=== PATIENT | female | born 1970 ===

== ENCOUNTER 2017-04-05 18:43 | Emergency (ER) | payer BC ==
[2017-04-05 18:57] VITALS: BP 157/96; PULSE 86; RESP 18; TEMP 98.7; O2SAT 100
[2017-04-05] MEDS ORDERED: Morphine 4 MG/ML VIAL IVP STA (20:03)
[2017-04-05] MEDS ORDERED: Iohexol 240 (50 ml) PO ONE (20:03)
[2017-04-05] MEDS ORDERED: Sodium Chloride 0.9% 1,000 ML IV STA (20:04)
[2017-04-05] MEDS ORDERED: Iohexol 240 (50 ml) ONE (20:20)
[2017-04-05] MEDS ORDERED: Morphine 4 MG/ML VIAL ONE (20:20)
[2017-04-05 20:38] LABS: BASO % 0.3 % (0.0-2.0); EOS # 0.1 K/uL (0.0-0.7); EOS % 0.6 % (0.0-4.0); HEMOGLOBIN 13.6 g/dL (12.0-16.0); LYMPH # 1.4 K/uL (1.0-4.3); LYMPH % 11.6 % (20.0-40.0); MEAN CORPUSCULAR HEMOGLOBIN 29.8 pg (27.0-31.0); MEAN CORPUSCULAR HGB CONC 33.5 g/dL (33.0-37.0); MEAN PLATELET VOLUME 7.7 fl (7.2-11.7); MONO # 0.6 K/uL (0.0-0.8); MONO % 4.5 % (0.0-10.0); NEUT # 10.4 K/uL (1.8-7.0); RBC 4.55 Mil/uL (3.80-5.20); RED CELL DISTRIBUTION WIDTH 13.2 % (11.5-14.5); SQUAMOUS EPITHIAL 8 /hpf (0-5); URINE BACTERIA OCC (<OCC); URINE BILIRUBIN NEGATIVE (NEGATIVE); URINE BLOOD MODERATE (NEGATIVE); URINE CLARITY CLOUDY (Clear); URINE COLOR YELLOW (YELLOW); URINE GLUCOSE (UA) NEG (Normal); URINE LEUKOCYTE ESTERASE MOD Leu/uL (Negative); URINE NITRATE NEGATIVE (NEGATIVE); URINE PROTEIN 30 mg/dL (NEGATIVE); URINE UROBILINOGEN 0.2-1.0 mg/dL (0.2-1.0); WHITE BLOOD COUNT 12.5 K/uL (4.8-10.8)
[2017-04-05 20:47] LABS: ALB/GLOB RATIO 1.3 (1.0-2.1); ALBUMIN 4.4 g/dL (3.5-5.0); ALT/SGPT 29 U/L (9-52); AST/SGOT 22 U/L (14-36); BLOOD UREA NITROGEN 9 mg/dl (7-17); CALCIUM 8.9 mg/dL (8.4-10.2); GFR AFRICAN-AMERICAN > 60; GFR NON-AFRICAN AMERICAN > 60; LIPASE 64 U/L (23-300)
[2017-04-05] MEDS ORDERED: Sodium Chloride 0.9% 50 ML IV ONE (20:56)
[2017-04-05] MEDS ORDERED: Iohexol 300 100 ML IJ ONE (20:56)
--- NOTE | 2017-04-05 21:21 | ED PDOC ---
HPI: Abdomen Time Seen by Provider: 04/05/17 19:50 Chief Complaint (Nursing): Abdominal Pain Chief Complaint (Provider): Abdominal Pain History Per: Patient History/Exam Limitations: no limitations Onset/Duration Of Symptoms: Days (x 3) Current Symptoms Are (Timing): Still Present Location Of Pain/Discomfort: LUQ Additional Complaint(s): 46 year old female with a past medical history of chronic constipation, presents to the ER complaining of abdominal pain for 3 days. States she initially developed colicky left upper quadrant pain 2 days ago. Today in the afternoon she noticed a sharp left upper quadrant pain, which has been constant. Denies any associated nausea or vomiting. Patient reports her last bowel movement was this morning, and was soft. No fevers or chills. PMD: Dr. Jose Dangelo Past Medical History Reviewed: Historical Data, Nursing Documentation, Vital Signs Vital Signs: Last Vital Signs Temp 98.7 F 04/05/17 18:55 Pulse 86 04/05/17 18:55 Resp 18 04/05/17 18:55 BP 157/96 H 04/05/17 18:55 Pulse Ox 100 04/06/17 00:55 - Medical History PMH: Hypercholesterolemia Other PMH: Chronic constipation - Family History Family History: States: Unknown Family Hx - Social History Current smoker - smoking cessation education provided: No Alcohol: None Drugs: Denies - Home Medications Home Medications: Ambulatory Orders Medication Instructions Recorded Ciprofloxacin [Cipro] 500 mg PO BID 7 Days tab 04/06/17 Ketorolac Tromethamine [Toradol] 10 mg PO BID PRN #30 tab 04/06/17 metroNIDAZOLE [Flagyl] 500 mg PO BID 7 Days tab 04/06/17 - Allergies Allergies/Adverse Reactions: Allergies Allergy/AdvReac Type Severity Reaction Status Date / Time No Known Allergies Allergy Verified 04/05/17 18:54 Review of Systems ROS Statement: Except As Marked, All Systems Reviewed And Found Negative Constitutional: Negative for: Fever, Chills Gastrointestinal: Positive for: Abdominal Pain (left upper quadruant). Negative for: Vomiting, Diarrhea Physical Exam - Reviewed Nursing Documentation Reviewed: Yes Vital Signs Reviewed: Yes - Physical Exam Appears: Positive for: Non-toxic, No Acute Distress Head Exam: Positive for: ATRAUMATIC, NORMOCEPHALIC Skin: Positive for: Normal Color, Warm, Dry Eye Exam: Positive for: EOMI, Normal appearance, PERRL Neck: Positive for: Normal, Painless ROM Cardiovascular/Chest: Positive for: Regular Rate, Rhythm. Negative for: Murmur Respiratory: Positive for: Normal Breath Sounds. Negative for: Accessory Muscle Use, Respiratory Distress Gastrointestinal/Abdominal: Positive for: Soft, Tenderness (at the left upper quadrant). Negative for: Guarding, Rebound Back: Positive for: Normal Inspection, Other (Left flank tenderness) Extremity: Positive for: Normal ROM. Negative for: Pedal Edema, Deformity Neurologic/Psych: Positive for: Alert, Oriented (x3) - Laboratory Results Result Diagrams: 04/05/17 20:15 04/05/17 20:15 - ECG O2 Sat by Pulse Oximetry: 100 (RA) Pulse Ox Interpretation: Normal Medical Decision Making Medical Decision Making: Initial Impression: Constipation vs. colitis vs. diverticulitis vs. kidney stone Time: 20:03 Initial Plan: --Urine --CMP --Lactic Acid --Lipase --CBC w/ differential --Urinalysis --NS IV 1000 ml at 1000 mls/hr --Zofran 4 mg IV --Morphine 4 mg IV --Iohexol 50 ml PO --Pending CT Abd/Pelvis with PO & IV contrast Time: 2335 CT AP FINDINGS: Lower thorax: No acute findings. ABDOMEN: Liver: Unremarkable. No mass. Gallbladder and bile ducts: Unremarkable. No calcified stones. No ductal dilation. Pancreas: Unremarkable. No mass. No ductal dilation. Spleen: Unremarkable. No splenomegaly. Adrenals: Unremarkable. No mass. Kidneys and ureters: Unremarkable. No solid mass. No hydronephrosis. Stomach and bowel: Abnormal thick walled loop of sigmoid colon in just posterior and to the left of the uterus. There is luminal narrowing and stranding of the adjacent fat. Few adjacent diverticuli. Differential diagnosis includes acute diverticulitis, nonspecific focal colitis , and neoplasm, which needs to be excluded. Appendix: No findings to suggest acute appendicitis. PELVIS: Bladder: Unremarkable. No mass. Reproductive: Unremarkable as visualized. ABDOMEN and PELVIS: Intraperitoneal space: Unremarkable. No free air. No significant fluid collection. Bones/joints: No acute fracture. No dislocation. Soft tissues: Unremarkable. Vasculature: Unremarkable. No abdominal aortic aneurysm. Lymph nodes: Unremarkable. No enlarged lymph nodes. Tubes, lines and devices: Intrauterine device in place. IMPRESSION: 1. Abnormal thick walled loop of sigmoid colon in just posterior and to the left of the uterus. There is luminal narrowing and stranding of the adjacent fat. Few adjacent diverticuli. Differential diagnosis includes acute diverticulitis, nonspecific focal colitis, and neoplasm, which needs to be excluded. 2. Remainder of findings as above. Time: 14 CT findings discussed with patient and informed unlikely to be neoplasm given onset of symptoms. Patient understands importance of follow up and will see Dr. Dangelo in 2-3 days. Patient to be given course of IV antibiotics and to be discharged home after completion of course. Patient feeling better after toradol. Return precautions discussed. Scribe Attestation: Documented by Balbina Mcmillan, acting as a scribe for Lucius Dunn MD Provider Scribe Attestation: All medical record entries made by the Scribe were at my direction and personally dictated by me. I have reviewed the chart and agree that the record accurately reflects my personal performance of the history, physical exam, medical decision making, and the department course for this patient. I have also personally directed, reviewed, and agree with the discharge instructions and disposition Disposition - Clinical Impression Clinical Impression: Diverticulitis Counseled Patient/Family Regarding: Studies Performed, Need For Followup - Disposition Referrals: Jose Dangelo MD [Staff Provider] - Disposition: Routine/Home Disposition Time: 00:20 Condition: IMPROVED Prescriptions: Ciprofloxacin [Cipro] 500 mg PO BID 7 Days tab Ketorolac Tromethamine [Toradol] 10 mg PO BID PRN #30 tab PRN Reason: Pain, Moderate (4-7) metroNIDAZOLE [Flagyl] 500 mg PO BID 7 Days tab Instructions: Diverticulitis (DC) Forms: [email or web address] ([place]rainian)
--- NOTE | 2017-04-05 23:31 | CT ---
EXAM: CT Abdomen and Pelvis With Intravenous Contrast CLINICAL HISTORY: 46 years old, female; Pain; Abdominal pain; Localized; Left; Prior surgery; Surgery date: 6+ months; Surgery type: Iud insertion 3 yrs ago; Additional info: Luq pain, nausea TECHNIQUE: Axial computed tomography images of the abdomen and pelvis with intravenous contrast. All CT scans at this facility use one or more dose reduction techniques, viz.: automated exposure control; ma/kV adjustment per patient size (including targeted exams where dose is matched to indication; i.e. head); or iterative reconstruction technique. Coronal and sagittal reformatted images were created and reviewed. CONTRAST: 98 mL of OMNIPAQUE administered intravenously. COMPARISON: No relevant prior studies available. FINDINGS: Lower thorax: No acute findings. ABDOMEN: Liver: Unremarkable. No mass. Gallbladder and bile ducts: Unremarkable. No calcified stones. No ductal dilation. Pancreas: Unremarkable. No mass. No ductal dilation. Spleen: Unremarkable. No splenomegaly. Adrenals: Unremarkable. No mass. Kidneys and ureters: Unremarkable. No solid mass. No hydronephrosis. Stomach and bowel: Abnormal thick walled loop of sigmoid colon in just posterior and to the left of the uterus. There is luminal narrowing and stranding of the adjacent fat. Few adjacent diverticuli. Differential diagnosis includes acute diverticulitis, nonspecific focal colitis, and neoplasm, which needs to be excluded. Appendix: No findings to suggest acute appendicitis. PELVIS: Bladder: Unremarkable. No mass. Reproductive: Unremarkable as visualized. ABDOMEN and PELVIS: Intraperitoneal space: Unremarkable. No free air. No significant fluid collection. Bones/joints: No acute fracture. No dislocation. Soft tissues: Unremarkable. Vasculature: Unremarkable. No abdominal aortic aneurysm. Lymph nodes: Unremarkable. No enlarged lymph nodes. Tubes, lines and devices: Intrauterine device in place. IMPRESSION: 1. Abnormal thick walled loop of sigmoid colon in just posterior and to the left of the uterus. There is luminal narrowing and stranding of the adjacent fat. Few adjacent diverticuli. Differential diagnosis includes acute diverticulitis, nonspecific focal colitis, and neoplasm, which needs to be excluded. 2. Remainder of findings as above.
[2017-04-06] MEDS ORDERED: Ciprofloxacin 400mg/200ml D5W 400 MG/200 ML BAG IVPB STA (00:15)
[2017-04-06] MEDS ORDERED: metroNIDAZOLE 500mg/100ml NS 100 ML IVPB STA (00:15)
[2017-04-06] MEDS ORDERED: Sodium Chloride 0.9% 1,000 ML IV STA (00:16)
[2017-04-06] MEDS ORDERED: Ciprofloxacin 400mg/200ml D5W 400 MG/200 ML BAG IVPB ONE (00:18)
[2017-04-06] MEDS ORDERED: metroNIDAZOLE 500mg/100ml NS 100 ML IVPB ONE (00:18)
== END 2017-04-06 02:48 | disposition home or self-care (01) ==
LOC: H.ER 18:43
DX: K57.92 Diverticulitis of intestine, part unspecified, without perforation or abscess without bleeding (principal); E78.00 Pure hypercholesterolemia, unspecified
CPT/HCPCS: 74177; 80053; 81003; 81025; 83605; 83690; 85025; 96365; 96367; 96375; 99283; J0744; J1885; J2270; J2405; J7040; Q9966; Q9967